=== PATIENT | male | born 1965 | race Caucasian/White ===

== ENCOUNTER 2023-05-25 09:52 | Day surgery (SDC) | payer OTHER ==
[~2023-05-25] VITALS: Ht 170.2 cm; Wt 70.3 kg
[2023-05-25] MEDS ORDERED: fentaNYL citrate 0.05 MG/ML VIAL ONE (12:15)
[2023-05-25] MEDS ORDERED: LIDOCAINE 2% 100 MG/5 ML UJET TP ONE (12:15)
[2023-05-25] MEDS ORDERED: fentaNYL citrate 0.05 MG/ML VIAL IVP ONE (13:20)
== END 2023-05-25 13:20 | disposition home or self-care (01) ==
LOC: MOR 09:52 → MMU 09:55 → MOR 13:20
PROVIDERS: ATTEND Internal Medicine Gastroenterology
DX: Z12.11 Encounter for screening for malignant neoplasm of colon (principal); R12 Heartburn; E11.9 Type 2 diabetes mellitus without complications; Z79.84 Long term (current) use of oral hypoglycemic drugs; Z79.899 Other long term (current) drug therapy
CPT/HCPCS: 45378; 82948; J3010